=== PATIENT | female | born 1955 | race Two or more races ===

== ENCOUNTER 2016-11-13 23:14 | Inpatient (IN) | payer OTHER, MEDICAID ==
[2016-11-13 23:45] LABS: % BASOPHILS 1.4 % (0.0-2.0); % EOSINOPHILS 3.1 % (0.0-5.0); % LYMPHOCYTES 13.4 % (20.0-50.0); % NEUTROPHILS 76.1 % (40.0-80.0); HEMATOCRIT 32.1 % (35.0-45.0); HEMOGLOBIN 10.8 gm/dL (11.7-15.5); MEAN CORPUSCULAR HEMOGLOBIN 28.2 pg (27.0-31.0); MEAN CORPUSCULAR HGB CONC 33.6 pg (28.0-36.0); NEUTROPHILE ABSOLUTE 5.9 Th/cmm (1.8-8.0); PLATELET COUNT 158 Th/cmm (150-400); RED BLOOD COUNT 3.82 Mil/cmm (3.80-5.10); RED CELL DISTRIBUTION WIDTH 13.1 % (11.5-20.0); WHITE BLOOD COUNT 7.7 Th/cmm (4.8-10.8)
--- NOTE | 2016-11-13 23:46 | ED Physician Chart ---
Chief Complaint/HPI - Patient Information Date Seen:: 11/13/16 Time Seen:: 23:30 Chief Complaint:: swelling left lower leg History of Present Illness:: patient noted swelling left lower leg yesterday. Denies trauma. No chest pain. No fever. States she is more short of breath than usual because she has been moving around a lot. Allergies:: Allergies Allergy/AdvReac Type Severity Reaction Status Date / Time No Known Allergies Allergy Verified 11/13/16 23:17 Historian:: Patient Review:: Nurse's Note Reviewed Review of Systems - Review of Systems General/Constitutional: No fever, No chills Skin: No skin lesions Head: No headache Eyes: No loss of vision ENT: No earache Neck: No neck pain, No swelling Cardio Vascular: No chest pain Pulmonary: SOB GI: No nausea, No vomiting G/U: No dysuria Musculoskeletal: Muscle pain Psychiatric: No prior psych history Hematopoietic: No bruising Allergic/Immuno: No urticaria Neurological: No syncope, No focal symptoms Past Medical History - Past Medical History Past Medical History: HTN, DM, Other (ventral hernia) Family History: None Social History: Non Smoker, Surgical History: Cholecystectomy, Hysterectomy, , other (abscess right buttocks) Psychiatricy History: Depression Medication: Reviewed Family Medical History - Family Member Mother History Unknown: Yes Physical Exam - Physical Examination General/Constitutional: Well-developed, well-nourished, Alert Head: Atraumatic Eyes: Lids, conjuctiva normal, PERRL Skin: Well hydrated Other Skin comments:: hyperpigmentation lower legs ENMT: External ears, nose nl, Nasal exam nl, Lips, teeth, gums nl, Oropharynx nl , Tonsils nl Neck: No nuchal rigidity Respiratory: Clear to Auscultation Cardio Vascular: RRR GI: No tenderness/rebounding/guarding, No organomegaly Other Extremities comments:: left lower leg slightly swollen compared to right. Labs/Radiology/EKG Results - Lab Results Comments:: Laboratory Results - last 24 hr 11/13/16 11/13/16 11/13/16 23:33 23:33 23:33 WBC 7.7 RBC 3.82 Hgb 10.8 L Hct 32.1 L MCV 84.0 MCH 28.2 MCHC Differential 33.6 RDW 13.1 Plt Count 158 MPV 8.0 Neutrophils % 76.1 Lymphocytes % 13.4 L Monocytes % 6.0 Eosinophils % 3.1 Basophils % 1.4 PT 9.2 L INR 0.89 PTT (Actin FS) 23.4 L Sodium 137 Potassium 4.6 Chloride 106 Carbon Dioxide 23.6 Anion Gap 12.0 BUN 59 H Creatinine 2.6 H Est GFR ( Amer) 24.1 Est GFR (Non-Af Amer) 19.9 BUN/Creatinine Ratio 22.7 Glucose 190 H Calcium 8.6 - Radiology Results Results: venous doppler negative for DVT ED Septic Shock - . Is Septic Shock (SBP<90, OR Lactate>4 mmol\L) present?: No Reassessment (Disposition) - Reassessment Reassessment Condition:: Unchanged - Diagnosis Diagnosis:: cellulitis left lower leg; hyperglycemia; diabetes; anemia - Patient Disposition Admitted to:: Med/Surg Spoke to:: Philippe Lara Admitting Medical Physician:: Philippe Lara Condition at Disposition:: Stable, Unchanged
[2016-11-13 23:55] LABS: INR 0.89 (0.5-1.4); PROTHROMBIN TIME (TEST) 9.2 SECONDS (9.5-11.5)
[2016-11-13 23:58] LABS: BUN/CREATININE RATIO 22.7; CALCIUM SERUM 8.6 mg/dL (8.6-10.3); CARBON DIOXIDE 23.6 mEq/L (21.0-31.0); CREATININE - SERUM 2.6 mg/dL (0.6-1.2); POTASSIUM SERUM 4.6 mEq/L (3.5-5.1)
[2016-11-14 02:51] VITALS: BP 156/92
[2016-11-14] MEDS ORDERED: Ipratropium Neb 0.5 mg/2.5 mL UD HHN PRN (04:21)
[2016-11-14] MEDS ORDERED: Hydrocodone/APAP 10 mg/325 mg Tab PO PRN (04:21)
[2016-11-14] MEDS ORDERED: Maalox 30 mL Cup PO PRN (04:21)
[2016-11-14] MEDS: cefTRIAXone 1 GM in Sodium Chloride 0.9% 50 ML IV SCH (04:52)
--- NOTE | 2016-11-14 08:54 | Diagnostic Imaging Report ---
Left lower extremity DVT study HISTORY: Pain COMPARISON: None Technique: Longitudinal and transverse sonographic images of the left lower extremity veins were obtained with doppler analysis. FINDINGS: There is normal compressibility, augmentation and phasicity of the left common femoral, superficial femoral, popliteal, and posterior tibial veins. No thrombus is visualized. IMPRESSION: No evidence of thrombus within the left lower extremity veins.
[2016-11-14] MEDS ORDERED: Non-Formulary Item 1 EA (Fluticasone/Salmeterol [Advair 250-50 Diskus] 1 PUFF) INH SCH (09:00)
[2016-11-14] MEDS ORDERED: Albuterol Sulfate ER 4 mg Tab PO SCH (09:00)
[2016-11-14] MEDS ORDERED: Budesonide 0.5 Mg/2 mL Ud HHN SCH (09:00)
[2016-11-14] MEDS: Polyvinyl Alcohol Ophth Soln 15 mL Bottle EACH EYE SCH ×2 (09:50→18:24)
--- NOTE | 2016-11-14 11:22 | History & Physical ---
CHIEF COMPLAINT: Edema of left lower extremity. HISTORY OF PRESENT ILLNESS: This is the case of a 61-year-old female who I follow in the skilled nursing. I received a call from skilled nursing and stated that there was some redness and swelling of the left lower extremity. The patient was sent to ER for evaluation and treatment. PAST MEDICAL HISTORY: The patient has past medical history of chronic anemia, diabetes mellitus, hypertension, morbid obesity, hyperlipidemia, chronic renal failure, chronic obstructive pulmonary disease, diabetic peripheral neuropathy, major depressive disorder. SOCIAL HISTORY: The patient is a permanent resident of a skilled nursing. She denies use of alcohol or drugs. FAMILY HISTORY: Noncontributory. PAST SURGICAL HISTORY: Status post tracheostomy. MEDICATIONS: Reviewed. REVIEW OF SYSTEMS: LUNGS: The patient denies shortness of breath. HEART: The patient denies chest pain. ABDOMEN: Unremarkable. EXTREMITIES: The patient referred edema and redness of the left lower extremity. NEUROLOGICAL: Unremarkable. PHYSICAL EXAMINATION: GENERAL: Does reveal a fairly nourished and developed female, awake, alert, in no acute distress. HEENT: Head is normocephalic and atraumatic. Eyes: Pupils reactive to light. Nose: No evidence of nasal obstruction. Ears: No evidence of any discharge. Mouth: Fairly ____. VITAL SIGNS: Bilateral decreased air entry. No wheezing, no crackles at this moment. HEART: Regular rhythm. ABDOMEN: Globular, soft, nontender. Bowel sounds present. EXTREMITIES: There is some redness and edema of the left lower extremity. NEUROLOGICAL: The patient is awake, alert, oriented, in no acute distress. Neurological examination was not completed secondary to the patient is unable to ____. IMPRESSION: 1. Cellulitis of the left lower leg. 2. Diabetes mellitus. 3. Chronic kidney disease. 4. Hypertension. 5. Chronic obstructive pulmonary disease. 6. Morbid obesity. 7. Diabetic peripheral neuropathy. 8. Major depressive disorder. PLAN: 1. The patient will be admitted in the medical surgical floor. 2. IV normal saline. 3. Consult with Dr. Young, Nephrology. 4. Ceftriaxone IV. 5. Continue with skilled nursing medications. 6. Insulin sliding scale. 7. CBC, CMP at a.m. JOB# [id number]
--- NOTE | 2016-11-14 13:17 | Admit Criteria Form ---
Admit Criteria Forms - Admit Criteria Diagnosis: CELLULITIS Clinical Indications for Admission to Inpatient Care (Place 'X' for any and all applicable criteria): Admission is indicated for ANY ONE of the following(1)(2)(3)(4)(5): [ ]I. Limb-threatening infection [ ]II. High-risk comorbid condition as indicated by ANY ONE of the following: [ ]a) Uncontrolled diabetes (eg, HbA1c greater than 10% (0.1)) [ ]b) Cirrhosis [ ]c) Neutropenia [ ]d) Asplenia [ ]e) Immunosuppression [ ]f) Symptomatic heart failure [ ]III. Failure of outpatient therapy as indicated by ALL of the following: [ ]a) Progression or no improvement after adequate trial (minimum of 48 hours, with longer period for stable lower extremity infection) [ ]b) Adequate antibiotic regimen as indicated by use of ANY ONE of the following: [ ]i) First-generation cephalosporin (e.g., cephalexin) [ ]ii) Antistaphylococcal penicillin (e.g., dicloxacillin) [ ]iii) Penicillin-allergic patient regimen (clindamycin, extended-spectrum fluoroquinolone, or doxycycline) [ ]iv) Resistant organism (eg, methicillin-resistant Staphylococcus aureus) regimen (6) [ ]c) Outpatient intravenous therapy regimen is not appropriate due to ANY ONE of the following. (7)(8)(9)(10): [ ]i) It was tried and was not successful (eg, progression of infection). [ ]ii) It is not available or cannot be arranged in a clinically appropriate time frame (e.g., the next day). [ ]iii) Clinical presentation (eg, acuity of infection, rapidity of progression, confirmed or suspected bacteremia) is judged to require ALL of the following: [ ]1) Immediate initiation of intravenous therapy ( eg, cannot wait for next day) [ ]2) Intensity of patient monitoring and observation (eg, vital sign measurement, checks for infection progression) that cannot be provided at other than inpatient level of care [ ]IV. Mental status changes [ ]V. Bacteremia [ ]. Hemodynamic instability [ ]VII. Suspected necrotizing soft tissue infection (e.g., gas in tissue)(11)( 12) [ ]VIII. Orbital infection (13)(14) [ ]IX. Associated surgical procedure (e.g., abscess drainage, debridement) not amenable to outpatient, emergency department, or observation care [ ]X. Cutaneous gangrene [ ]XI. High fever (temperature greater than 39.5 degrees C (103.1 degrees F) (oral)) not responsive to outpatient, emergency department, or observation care therapy [X]XIII. Inpatient admission required rather than observation care (Also use Cellulitis: Observation Care as appropriate) because of ANY ONE of the following : [ ]a) Periorbital or perineal infection that is severe or worsening [ ]b) Severe pain requiring acute inpatient management [ ]c) IV fluid to replace significant ongoing (e.g., for over 24 hours) losses (greater than 3L/m2 per day) [ ]d) Compartment syndrome monitoring (17) [ ]e) Strict or protective (eg, laminar flow) isolation [ ]f) Urgent debridement or skin grafting [ ]g) Bone or joint debridement [ ]h) Immediate inpatient surgery [X]i) Other condition, treatment or monitoring requiring inpatient admission Extended stay beyond goal length of stay may be needed for (1)(18): [ ]a) Necrotizing soft tissue infection or fasciitis [ ]b) Gram-negative infection [ ]c) Methicillin-resistant Staphylococcal aureus (MRSA) infection [ ]d) Peripheral venous insufficiency with cellulitis [ ]e) Extensive edema [ ]f) Sepsis or continued Hemodynamic instability [ ]g) Continued high fever or mental status change [ ]h) Bacteremia [ ]i) Active serious comorbid conditions ( eg, heart failure, renal insufficiency) The original [facility] [employer] content created by [facility] has been revised. The portions of the content which have been revised are identified through the use of italic text or in bold, and [facility] has neither reviewed nor approved the modified material. All other unmodified content is copyright [facility] Please see references footnoted in the original [facility] edition 2016 Admit Criteria Met?: Yes
--- NOTE | 2016-11-14 14:30 | Diagnostic Imaging Report ---
Bilateral lower extremity arterial Doppler study HISTORY: Peripheral vascular disease COMPARISON: None Technique: Longitudinal and transverse sonographic images of the bilateral lower extremity arteries were obtained with doppler analysis. FINDINGS: Exam is limited due to body habitus and pain. Exam of the right side demonstrates intimal thickening generalized atherosclerotic vascular disease with primarily biphasic and areas of monophasic flow. No evidence of significant decreased velocities. Exam of the left side demonstrates generalized atherosclerotic vascular disease with primarily biphasic and monophasic flow. No evidence of significant focal decreased velocity. Ankle brachial indices were not able to be obtained. No sonographic evidence of occlusion. IMPRESSION: Diffuse generalized atherosclerotic vascular disease with biphasic and monophasic flow seen throughout the bilaterally lower extremity arterial system. No sonographic evidence of occlusion. If indicated follow up CT angiogram of the lower extremity is may also be obtained.
[2016-11-14] MEDS ORDERED: Insulin Detemir 100 units/mL 10mL Vial SUBQ SCH (21:00)
[2016-11-14] MEDS: Albuterol Nebulizer 2.5mg/3mL HHN PRN (21:30)
[2016-11-15] MEDS: Polyvinyl Alcohol Ophth Soln 15 mL Bottle EACH EYE SCH ×3 (04:48→13:59)
[2016-11-15] MEDS: cefTRIAXone 1 GM in Sodium Chloride 0.9% 50 ML IV SCH (05:45)
[2016-11-15 06:56] LABS: % BASOPHILS 0.9 % (0.0-2.0); % EOSINOPHILS 3.4 % (0.0-5.0); % LYMPHOCYTES 14.2 % (20.0-50.0); % MONOCYTES 6.7 % (2.0-10.0); % NEUTROPHILS 74.8 % (40.0-80.0); HEMOGLOBIN 10.4 gm/dL (11.7-15.5); MEAN CELL VOLUME 84.1 fl (81-100); MEAN CORPUSCULAR HEMOGLOBIN 28.2 pg (27.0-31.0); MEAN CORPUSCULAR HGB CONC 33.5 pg (28.0-36.0); MEAN PLATELET VOLUME 8.2 fl; NEUTROPHILE ABSOLUTE 5.4 Th/cmm (1.8-8.0); PLATELET COUNT 160 Th/cmm (150-400); RED BLOOD COUNT 3.68 Mil/cmm (3.80-5.10); RED CELL DISTRIBUTION WIDTH 13.2 % (11.5-20.0); WHITE BLOOD COUNT 7.2 Th/cmm (4.8-10.8)
[2016-11-15] MEDS: Albuterol Nebulizer 2.5mg/3mL HHN PRN (07:15)
[2016-11-15 07:17] LABS: ALB/GLOB RATIO 0.8 (1.0-1.8); ANION GAP 6.9 (7.0-16.0); BILIRUBIN,TOTAL 0.4 mg/dL (0.3-1.0); BUN/CREATININE RATIO 20.4; CALCIUM SERUM 8.7 mg/dL (8.6-10.3); CARBON DIOXIDE 27.4 mEq/L (21.0-31.0); CREATININE - SERUM 2.3 mg/dL (0.6-1.2); POTASSIUM SERUM 4.3 mEq/L (3.5-5.1)
[2016-11-15 07:18] LABS: MAGNESIUM 1.8 mg/dL (1.9-2.7); PHOSPHOROUS 4.5 mg/dL (2.5-5.0); URIC ACID 10.1 mg/dL (2.3-6.6)
--- NOTE | 2016-11-15 08:57 | General Progress Note ---
Subjective - Review of Systems Service Date: 11/15/16 Subjective: I feel better Objective - Results Result Diagrams: 11/15/16 06:32 11/15/16 06:32 Recent Labs: Laboratory Last Values WBC 7.2 Th/cmm (4.8-10.8) 11/15/16 06:32 RBC 3.68 Mil/cmm (3.80-5.10) L 11/15/16 06:32 Hgb 10.4 gm/dL (11.7-15.5) L 11/15/16 06:32 Hct 31.0 % (35.0-45.0) L 11/15/16 06:32 MCV 84.1 fl (81-100) 11/15/16 06:32 MCH 28.2 pg (27.0-31.0) 11/15/16 06:32 MCHC Differential 33.5 pg (28.0-36.0) 11/15/16 06:32 RDW 13.2 % (11.5-20.0) 11/15/16 06:32 Plt Count 160 Th/cmm (150-400) 11/15/16 06:32 MPV 8.2 fl 11/15/16 06:32 Neutrophils % 74.8 % (40.0-80.0) 11/15/16 06:32 Lymphocytes % 14.2 % (20.0-50.0) L 11/15/16 06:32 Monocytes % 6.7 % (2.0-10.0) 11/15/16 06:32 Eosinophils % 3.4 % (0.0-5.0) 11/15/16 06:32 Basophils % 0.9 % (0.0-2.0) 11/15/16 06:32 PT 9.2 SECONDS (9.5-11.5) L 11/13/16 23:33 INR 0.89 (0.5-1.4) 11/13/16 23:33 PTT (Actin FS) 23.4 SECONDS (26.0-38.0) L 11/13/16 23:33 Sodium 142 mEq/L (136-145) 11/15/16 06:32 Potassium 4.3 mEq/L (3.5-5.1) 11/15/16 06:32 Chloride 112 mEq/L (98-107) H 11/15/16 06:32 Carbon Dioxide 27.4 mEq/L (21.0-31.0) 11/15/16 06:32 Anion Gap 6.9 (7.0-16.0) L 11/15/16 06:32 BUN 47 mg/dL (7-25) H 11/15/16 06:32 Creatinine 2.3 mg/dL (0.6-1.2) H 11/15/16 06:32 Est GFR ( Amer) 27.7 ml/min (>90) 11/15/16 06:32 Est GFR (Non-Af Amer) 22.9 ml/min 11/15/16 06:32 BUN/Creatinine Ratio 20.4 11/15/16 06:32 Glucose 84 mg/dL (70-105) 11/15/16 06:32 POC Glucose 212 MG/DL (70 - 105) H 11/14/16 21:31 Hemoglobin A1c % 7.3 % (4.0-6.0) H 11/13/16 23:33 Uric Acid 10.1 mg/dL (2.3-6.6) H 11/15/16 06:32 Calcium 8.7 mg/dL (8.6-10.3) 11/15/16 06:32 Phosphorus 4.5 mg/dL (2.5-5.0) 11/15/16 06:32 Magnesium 1.8 mg/dL (1.9-2.7) L 11/15/16 06:32 Total Bilirubin 0.4 mg/dL (0.3-1.0) 11/15/16 06:32 AST 16 U/L (13-39) 11/15/16 06:32 ALT 16 U/L (7-52) 11/15/16 06:32 Alkaline Phosphatase 58 U/L (34-104) 11/15/16 06:32 Total Protein 6.4 gm/dL (6.0-8.3) 11/15/16 06:32 Albumin 2.9 gm/dL (3.7-5.3) L 11/15/16 06:32 Globulin 3.5 gm/dL 11/15/16 06:32 Albumin/Globulin Ratio 0.8 (1.0-1.8) L 11/15/16 06:32 TSH 3.38 uIU/ml (0.34-5.60) 11/15/16 06:32 - Physical Exam Vitals and I&O: Vital Signs Temp 97.0 F 11/15/16 08:00 Pulse 61 11/15/16 08:00 Resp 19 11/15/16 08:00 BP 176/85 11/15/16 08:00 Pulse Ox 99 11/15/16 08:00 Intake & Output 11/14/16 11/15/16 11/15/16 18:59 06:59 18:59 Output Total 1 Balance -1 Output: Stool 1 Other: # Voids 3 Active Medications: Current Medications Acetaminophen (Tylenol) 650 mg PO Q6H PRN PRN Reason: FEVER 100.4 AND > Stop: 01/13/17 01:14 Last Admin: 11/14/16 09:45 Dose: 650 mg Acetaminophen/Hydrocodone Bitart ([place] 10 Mg/325 Mg) 1 tab PO Q6H PRN PRN Reason: Pain (Moderate) Stop: 01/13/17 04:20 Al Hydrox/Mg Hydrox/Simethicone (Maalox) 10 ml PO Q6HR PRN PRN Reason: GI DISTRESS Stop: 01/13/17 04:20 Albuterol Sulfate (Albuterol 2.5mg/3ml Neb Ud) 2.5 mg HHN Q6HR PRN PRN Reason: Shortness of Breath or Wheeze Stop: 01/13/17 04:20 Last Admin: 11/15/16 07:15 Dose: 2.5 mg Albuterol Sulfate (Vospire Er) 4 mg PO BID [facility] Stop: 01/13/17 08:59 Artificial Tears (Artificial Tears Ophth Soln) 1 drop EACH EYE QID [facility] Stop: 01/13/17 08:59 Last Admin: 11/15/16 04:48 Dose: 1 drop Budesonide (Pulmicort) 0.5 mg HHN BIDRT [facility] Stop: 01/13/17 08:59 Last Admin: 11/15/16 07:15 Dose: 0.5 mg Cyanocobalamin (Vitamin B12) 1,000 mcg IM QMONTH [facility] Stop: 01/13/17 11:59 Last Admin: 11/14/16 18:20 Dose: 1,000 mcg Diphenhydramine HCl (Benadryl) 25 mg PO Q8HR PRN PRN Reason: Itching Stop: 01/13/17 04:20 Fluoxetine HCl (Prozac) 60 mg PO DAILY [facility] Stop: 01/13/17 08:59 Last Admin: 11/14/16 09:44 Dose: 60 mg Gabapentin (Neurontin) 300 mg PO TID [facility] Stop: 01/13/17 08:59 Last Admin: 11/14/16 21:32 Dose: 300 mg Ceftriaxone Sodium 1 gm/ (Sodium Chloride) 50 mls @ 100 mls/hr IV Q24HR [facility] Stop: 01/13/17 04:59 Last Admin: 11/15/16 05:45 Dose: 100 mls/hr Insulin Detemir (Levemir Insulin) 50 units SUBQ [facility] Stop: 01/13/17 20:59 Last Admin: 11/14/16 21:33 Dose: 50 units Ipratropium [place] (Atrovent Neb 0.5mg/2.5ml) 0.5 mg HHN Q6HR PRN PRN Reason: Shortness of Breath or Wheeze Stop: 01/13/17 04:20 Last Admin: 11/15/16 07:15 Dose: 0.5 mg Lorazepam (Ativan) 1 mg PO Q8HR PRN; Protocol PRN Reason: Anxiety Stop: 01/13/17 21:36 Last Admin: 11/15/16 00:06 Dose: 1 mg Metoprolol Tartrate (Lopressor) 25 mg PO Q12HR [facility] Stop: 01/13/17 08:59 Last Admin: 11/14/16 21:32 Dose: 25 mg Simvastatin (Zocor) 20 mg PO [facility] Stop: 01/13/17 20:59 Last Admin: 11/14/16 21:32 Dose: 20 mg General: Alert, Oriented x3, Cooperative, No acute distress HEENT: Atraumatic Neck: Supple Cardiovascular: Regular rate Lungs: Clear to auscultation Abdomen: Bowel sounds, Soft Extremities: Other (No edema, redness and pain of left leg improved, ) Neurological: Other (Non ambulatory) Skin: Other (Redness of lwft leg improved) Psych/Mental Status: Mental status NL Assessment/Plan - Assessment Assessment: Patient is awake, calm, in no acute distress. Cellulites improving - Plan Plan: Patient in [facility], already seen by Nephro, possible discharge today. Nutritional Asmnt/Malnutr-PDOC - Dietary Evaluation Malnutrition Findings (Please click <Entered> for more info): Nutritional Asmnt/Malnutrition Start: 11/14/16 14: 26 Text: Status: Complete Freq: Document 11/14/16 14:28 GSUN (Rec: 11/14/16 14:45 GSPAT [id number]) Nutritional Asmnt/Malnutrition Patient General Information Nutritional Screening Consult Pertinent Medical Hx/Surgical Hx DM, HTN, morbid obesity, chronic anemia, hyperlipidemia , chronic renal failure, COPD, diabetic peripheral neuropathy, major depressive disorder Subjective Information 61 [address] consult for DM. Pt was awake and pleasant with family at bedside, appeared guarded and provided limited responses. Pt was sitting upright with lunch tray, RD noted of pt's food preferences. Offered edu on DM diet, pt rejected stating her doctor has discussed with ehr before. RD pointed out resource always available, pt nodded. Current Diet Order/ Nutrition Support Low sodium, CCHO Pertinent Medications Vitamin B12, Levemir Pertinent Labs 11/13: BUN 59H, creatinine 2.6H , glucose 190H, A1c 7.3H Nutritional Hx/Data Height 1.65 m Height (Calculated Centimeters) 165.1 Current Weight (lbs) 150.865 kg Weight (Calculated Kilograms) 150.9 Weight (Calculated Grams) 975077.8 Usual body Weight (lbs) 322 [place] Body Weight 125 Recent Weight Change No Weight Status Morbidly Obese GI Symptoms Food Allergies No Cultural/Ethnic/B[employer]ism Belief No fish, no onion. Usual diet at home Unknown. 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 Problem Problem Impaired nutrient utilization related to Etiology CKD aeb Signs/Symptoms: creatinine 2.6H, BUN 59H 1. Problem Problem Altered nutrition related laboratory values related to Etiology DM aeb Signs/Symptoms: A1c 7.3, glucose 190H Intervention/Recommendation Comments 1. Recommend [id number] low sodium 2gm diet. 2. Pt's food preferences noted , FNS will honor as able. 3. Offered edu on DM, pt denied at this time. Edu on DM during follow up as needed. Expected Outcomes/Goals Expected Outcomes/Goals 1. PO intake to meet at least 75% of estimated nutritional needs.
--- NOTE | 2016-11-15 10:16 | Diagnostic Imaging Report ---
History: UTI TECHNIQUE:2 D ultrasound was performed with transaxial and longitudinal images. FINDINGS: Right kidney measures 11.4 x 4.2 x 6.1 cm and left kidney measures 10.2 x 6 x 5.7 cm. A lower pole right renal cyst measuring 1.7 cm. No renal stones or hydronephrosis. Urinary bladderwall measures 3 mm. Prevoid. Bladder volume is 270 cm and post void bladder volume is 14 cm IMPRESSION: Other than a small right renal cyst this is an unremarkable exam.
[2016-11-15 12:22] LABS: URINE BILIRUBIN NEGATIVE (NEGATIVE); URINE BLOOD TRACE (NEGATIVE); URINE COLOR YELLOW; URINE GLUCOSE (UA) NEGATIVE (NEGATIVE); URINE KETONE NEGATIVE (NEGATIVE); URINE PROTEIN >300 mg/dL (NEGATIVE); URINE UROBILINOGEN 0.2 E.U./dL (0.2 - 1.0)
[2016-11-15 12:23] LABS: URINE BACTERIA OCCASIONAL /hpf (NONE SEEN); URINE EPITHELIAL CELLS FEW /lpf (FEW); URINE RBC 0-2 /hpf (0-5)
[2016-11-15] MEDS ORDERED: Mag Sulfate 2gm/50mL Premix 2 GM/50 ML BAG IV ONE (13:40)
--- NOTE | 2016-11-17 20:42 | Discharge Summary ---
CHIEF COMPLAINT: Edema of left lower extremity. HISTORY OF PRESENT ILLNESS: This is the case of a 61-year-old female who was sent from a custodial secondary to edema and pain of the left lower extremity. During ER evaluation, it was found that the patient had cellulitis in the left leg, the reason why she was hospitalized. HOSPITAL COURSE AND TREATMENT: This patient was admitted on the Medical/Surgical floor. She was started on IV normal saline. She received IV. She was continued with custodial medications. She was put on insulin sliding scale with diabetic diet. Consult with Dr. Young, Nephrology, was done because the patient has chronic kidney disease. With this treatment and after discussed the case with Dr. Young, on 11/15/2016, the patient was discharged to custodial to continue care with primary care physician. CANDY CUTTER HAND IN THIS CASE: Dr. Young, Nephrology. DIAGNOSES: 1. Cellulitis of the left lower leg. 2. Diabetes mellitus. 3. Chronic kidney disease. 4. Hypertension. 5. Chronic obstructive pulmonary disease. 6. Morbid obesity. 7. Diabetic peripheral neuropathy. 8. Major depressive disorder. JOB# [id number]
== END 2016-11-15 16:55 | DRG 603 ==
LOC: ER 23:14 → MSI 11-14 01:00
PROVIDERS: ADMIT General Practice; ATTEND General Practice
DX: L03.116 Cellulitis of left lower limb (principal); E11.22 Type 2 diabetes mellitus with diabetic chronic kidney disease; E11.40 Type 2 diabetes mellitus with diabetic neuropathy, unspecified; Z68.43 Body mass index [BMI] 50.0-59.9, adult; E11.65 Type 2 diabetes mellitus with hyperglycemia; I12.9 Hypertensive chronic kidney disease with stage 1 through stage 4 chronic kidney disease, or unspecified chronic kidney disease; N18.9 Chronic kidney disease, unspecified; J44.9 Chronic obstructive pulmonary disease, unspecified; F32.9 Major depressive disorder, single episode, unspecified; E66.01 Morbid (severe) obesity due to excess calories; E78.5 Hyperlipidemia, unspecified; Z90.49 Acquired absence of other specified parts of digestive tract; Z90.710 Acquired absence of both cervix and uterus
CPT/HCPCS: 36415-UA; 76770-TC; 80048-TC; 80053-TC; 81001-TC; 81015-TC; 82570-TC; 82948-90; 83036-90; 83735-TC; 84100-TC; 84300-TC; 84443-TC; 84550-TC; 85025-TC; 85610-TC; 85730-TC; 87070-90; 87075-90; 87086-90; 87205-90; 90779; 93925-TC; 93971-TC-LT; 94760; J0696; J1815; J3420; J3475; J7613; Z7610